=== PATIENT | female | born 1955 | race Caucasian/White ===

== ENCOUNTER 2022-08-24 17:09 | Emergency (ER) | payer OTHER ==
[~2022-08-24] VITALS: Ht 152.4 cm; Wt 77.1 kg
[2022-08-24 17:10] VITALS: BP 142/81
--- NOTE | 2022-08-24 17:11 | NUR ---
PATIENT BIBA TO BED 10.
[2022-08-24] MEDS ORDERED: methylPREDNISolone SS 125 MG/2 ML VIAL IVP ONE (17:15)
[2022-08-24] MEDS ORDERED: ALBUTEROL 0.083% 2.5 MG/3 ML NEBU INH ONE (17:15)
--- NOTE | 2022-08-24 17:24 | NUR ---
Asessement done and documented. patient with h/o Crhon's disease, Ileostomy placement 2009, HTN, patient was admitted on 09/18 and was discharged today for dx. low BP and hypokalemia. Patient was discharged for 2 hours and started feeling SOB and called 911. patient is not in any distress at this time. MD at bedside evaluating.
--- NOTE | 2022-08-24 17:24 | NUR ---
covid and flu swabs sent to lab
--- NOTE | 2022-08-24 17:25 | NUR ---
ALFA: LAURA [phone]
[2022-08-24 17:55] LABS: BASOPHILS % (AUTO) 0.6 % (0.0-2.0); EOSINOPHILS % (AUTO) 0.5 % (0.0-4.0); HEMOGLOBIN 10.7 g/dL (12.0-16.0); LYMPHOCYTES # (AUTO) 0.7 K/uL (2.5-16.5); LYMPHOCYTES % (AUTO) 20.4 % (20.5-51.1); MEAN CORPUSCULAR HEMOGLOBIN 26 pg (27-31); MEAN CORPUSCULAR HGB CONC 33 g/dL (33-37); MEAN CORPUSCULAR VOLUME 78.4 fL (80-94); MONOCYTES # (AUTO) 0.3 K/uL (0.8-1.0); MONOCYTES % (AUTO) 7.8 % (1.7-9.3); NEUTROPHILS # (AUTO) 2.4 K/uL (1.8-7.7); NEUTROPHILS % (AUTO) 70.7 % (42.2-75.2); PLATELET COUNT (AUTO) 177 K/uL (140-450); RED BLOOD CELL COUNT(AUTO) 4.08 MIL/uL (4.20-5.40); RED CELL DISTRIBUTION WIDTH 15.7 % (11.6-13.7); WHITE BLOOD COUNT (AUTO) 3.4 K/uL (4.8-10.8)
[2022-08-24 18:09] LABS: ALBUMIN 2.8 g/dL (3.4-5.0); CARBON DIOXIDE 26.2 mmol/L (21-32); POTASSIUM 4.2 mmol/L (3.5-5.1); TOTAL BILIRUBIN 0.3 mg/dL (0.0-1.0)
--- NOTE | 2022-08-24 19:30 | NUR ---
Patient received on bed lying and awake. Alert and oriented x4. No acute distress. No complaints of pain or discomfort. Respirations even and tachypneic while patient is on 4 L/min of oxygen via nasal cannula.
[2022-08-24] MEDS ORDERED: MAG SULF 2000 MG/WATER PREMIX 50 ML IV ONE (20:45)
--- NOTE | 2022-08-25 01:50 | NUR ---
Called [facility] ER and spoke to OMAIRA Zavala. 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
--- NOTE | 2022-08-25 04:55 | NUR ---
[facility] AT BEDSIDE
--- NOTE | 2022-08-25 05:11 | NUR ---
PT TAKEN BY [facility] TO [facility]
== END 2022-08-25 05:11 | disposition short-term general hospital (02) ==
LOC: MED 17:09
DX: J44.1 Chronic obstructive pulmonary disease with (acute) exacerbation (principal); Z20.822 Contact with and (suspected) exposure to COVID-19; I10 Essential (primary) hypertension; E11.9 Type 2 diabetes mellitus without complications; F32.A Depression, unspecified; F41.9 Anxiety disorder, unspecified; G43.909 Migraine, unspecified, not intractable, without status migrainosus; F17.200 Nicotine dependence, unspecified, uncomplicated; Z79.899 Other long term (current) drug therapy; Z98.890 Other specified postprocedural states
CPT/HCPCS: 36415; 71045; 80053; 83880; 84484; 85025; 85610; 85730; 87426; 87804; 93005; 96365; 96375; 99285; J2930; J3475; Q0092